=== PATIENT | male | born 1945 | race Caucasian/White ===

== ENCOUNTER 2017-09-19 17:14 | Inpatient (IN) | payer MEDICARE ==
[2017-09-19 17:28] LABS: ABSOLUTE BASOPHILS # (AUTO) 0.1 10^3/uL (0.0-0.2); ABSOLUTE EOSINOPHILS # (AUTO) 0.1 10^3/uL (0.0-0.6); ABSOLUTE LYMPHOCYTES (AUTO) 2.2 10^3/uL (0.5-4.7); ABSOLUTE MONOCYTES (AUTO) 0.9 10^3/uL (0.1-1.4); ABSOLUTE NEUT (AUTO) 8.4 10^3/uL (1.7-8.2); BASOPHILS % (AUTO) 0.8 % (0-2); EOSINOPHILS % (AUTO) 1.2 % (0-6); HEMATOCRIT 43.3 % (37.9-51.0); HEMOGLOBIN 14.4 g/dL (13.5-17.0); LYMPHOCYTES % (AUTO) 18.8 % (13-45); MEAN CORPUSCULAR HEMOGLOBIN 28.2 pg (27.0-33.4); MEAN CORPUSCULAR HGB CONC 33.3 g/dL (32.0-36.0); MEAN CORPUSCULAR VOLUME 85 fl (80-97); MONOCYTES % (AUTO) 7.4 % (3-13); PLATELET COUNT 236 10^3/uL (150-450); RED BLOOD COUNT 5.12 10^6/uL (4.35-5.55); RED CELL DISTRIBUTION WIDTH 14.9 % (11.5-14.0); SEGMENTED NEUTROPHILS % (AUTO) 71.8 % (42-78); TOTAL CELLS COUNTED % (AUTO) 100 %; WHITE BLOOD COUNT 11.8 10^3/uL (4.0-10.5)
--- NOTE | 2017-09-19 17:44 | RADIOLOGY REPORT (SQ) ---
EXAM DESCRIPTION: CHEST SINGLE VIEW COMPLETED DATE/TIME: 09/19/2017 5:31 pm REASON FOR STUDY: [id number] COMPARISON: None. NUMBER OF VIEWS: One view. TECHNIQUE: Single frontal radiographic view of the chest acquired. LIMITATIONS: None. FINDINGS: LUNGS AND PLEURA: No opacities, masses or pneumothorax. No pleural effusion. MEDIASTINUM AND HILAR STRUCTURES: No masses. Contour normal. HEART AND VASCULAR STRUCTURES: Heart enlarged without failure. Normal vasculature. BONES: No acute findings. HARDWARE: None in the chest. OTHER: No other significant finding. IMPRESSION: HEART ENLARGED WITHOUT FAILURE. NO OTHER SIGNIFICANT RADIOGRAPHIC FINDING IN THE CHEST. TECHNICAL DOCUMENTATION: JOB ID: [id number] [employer]- All Rights Reserved Reading location - IP/workstation name: [email or web address]
[2017-09-19 17:53] LABS: CREATINE KINASE MB 2.03 ng/mL (<4.55); TROPONIN I 0.016 ng/mL
[2017-09-19] MEDS ORDERED: ASPIRIN 81 MG TABLET, CHEWABLE PO ONE (17:53)
[2017-09-19] MEDS ORDERED: DILTIAZEM HCL/D5W 125 MG/125 ML RTUINJ IV PRN (17:54)
[2017-09-19] MEDS ORDERED: DILTIAZEM HCL INJ 25 MG/5 ML VIAL IV ONE (17:54)
[2017-09-19 17:56] LABS: ALANINE AMINOTRANSFERASE 47 U/L (21-72); ALBUMIN 4.3 g/dL (3.5-5.0); ALKALINE PHOSPHATASE 78 U/L (38-126); ANION GAP 11 (5-19); ASPARTATE AMINO TRANSFERASE 25 U/L (17-59); BILIRUBIN,DIRECT 0.3 mg/dL (0.0-0.4); BILIRUBIN,TOTAL 0.8 mg/dL (0.2-1.3); BLOOD UREA NITROGEN 23 mg/dL (7-20); CALCIUM 9.6 mg/dL (8.4-10.2); CARBON DIOXIDE 24 mmol/L (22-30); CHLORIDE 105 mmol/L (98-107); CREATINE KINASE 70 U/L (55-170); GLUCOSE 97 mg/dL (75-110); POTASSIUM 4.4 mmol/L (3.6-5.0); SODIUM 140.1 mmol/L (137-145); TOTAL PROTEIN 7.5 g/dL (6.3-8.2)
[2017-09-19 18:18] LABS: LIPASE 136.2 U/L (23-300)
[2017-09-19 18:22] LABS: APPEARANCE,URINE CLEAR; BILIRUBIN,URINE NEGATIVE (NEGATIVE); COLOR,URINE YELLOW; GLUCOSE, URINE NEGATIVE (NEGATIVE); KETONES,URINE NEGATIVE (NEGATIVE); LEUKOCYTE ESTERASE,URINE NEGATIVE (NEGATIVE); NITRITE,URINE NEGATIVE (NEGATIVE); PROTEIN,URINE NEGATIVE (NEGATIVE); URINE SPECIFIC GRAVITY 1.013; UROBILINOGEN,URINE NEGATIVE mg/dL (<2.0)
[2017-09-19 18:34] LABS: URINE AMPHETAMINES SCREEN NEGATIVE; URINE BARBITURATES SCREEN NEGATIVE; URINE BENZODIAZEPINES SCREEN NEGATIVE; URINE COCAINE SCREEN NEGATIVE; URINE MARIJUANA (THC) SCREEN NEGATIVE; URINE METHADONE SCREEN NEGATIVE; URINE PHENCYCLIDINE SCREEN NEGATIVE
[2017-09-19 18:48] LABS: FREE T4 (FREE THYROXINE) 1.85 ng/dL (0.78-2.19)
--- NOTE | 2017-09-19 18:58 | EKG REPORT ---
SEVERITY:- ABNORMAL ECG - ATRIAL FIBRILLATION MULTIPLE PREMATURE COMPLEXES, VENT . RIGHT AXIS DEVIATION BORDERLINE T ABNORMALITIES, INFERIOR LEADS BORDERLINE PROLONGED QT INTERVAL : Confirmed by: Santiago Hartman MD 19-Sep-2017 18:58:31
[2017-09-19 19:02] LABS: THYROID STIMULATING HORMONE 5.87 uIU/mL (0.47-4.68)
[2017-09-19] MEDS ORDERED: MAG HYDROX/AL HYDROX/SIMETH SUSP 30 ML UDCUP PO PRN (20:03)
[2017-09-19] MEDS ORDERED: ACETAMINOPHEN 325 MG TABLET PO PRN (20:03)
[2017-09-19] MEDS ORDERED: ENALAPRILAT DIHYDRATE INJ/PF 1.25 MG/1 ML SDV IV PRN (20:03)
--- NOTE | 2017-09-19 20:08 | ER Document Report ---
ED General - General Chief Complaint: Breathing Difficulty Stated Complaint: COUGH Time Seen by Provider: 09/19/17 17:52 TRAVEL OUTSIDE OF THE [place] IN LAST 30 DAYS: No - HPI Patient complains to provider of: Shortness of breath Notes: Patient coming in for shortness of breath ongoing for approximately 1 week. Was seen by his local PCP with an irregular heartbeat referred to the ER for further evaluation. Patient has a history of hypertension hyperlipidemia. Patient otherwise states also having palpitations over the last week. Patient also states weight gain abdominal bloating and swelling the legs. Denies fevers chills nausea vomiting diarrhea. Denies any chest pain at this time denies any abdominal pain at this time. Patient looks to be in A. fib RVR on the monitor. - Related Data Allergies/Adverse Reactions: No Known Allergies Allergy (Unverified 09/19/17 19:22) Past Medical History - Social History Smoking Status: Current Some Day Smoker Frequency of alcohol use: Rare Drug Abuse: None Family History: Reviewed & Not Pertinent Patient has suicidal ideation: No Patient has homicidal ideation: No - Past Medical History Cardiac Medical History: Reports: Hx Atrial Fibrillation, Hx Hypercholesterolemia Renal/ Medical History: Denies: Hx Peritoneal Dialysis Past Surgical History: Reports: Hx Cholecystectomy Review of Systems - Review of Systems Constitutional: No symptoms reported EENT: No symptoms reported Cardiovascular: Palpitations, Dyspnea Respiratory: No symptoms reported Gastrointestinal: No symptoms reported Genitourinary: No symptoms reported Male Genitourinary: No symptoms reported Musculoskeletal: No symptoms reported Skin: No symptoms reported Hematologic/Lymphatic: No symptoms reported Neurological/Psychological: No symptoms reported -: Yes All other systems reviewed and negative Physical Exam - Vital signs Vitals: Pulse Ox 98 09/19/17 17:17 Interpretation: Normal - General General appearance: Appears well, Alert - HEENT Head: Normocephalic, Atraumatic Eyes: Normal Pupils: PERRL - Respiratory Respiratory status: No respiratory distress Chest status: Nontender Breath sounds: Normal Chest palpation: Normal - Cardiovascular Rhythm: Irregularly irregular, Tachycardia Heart sounds: Normal auscultation Murmur: No - Abdominal Inspection: Normal Distension: Tympanitic Bowel sounds: Normal Tenderness: Nontender Organomegaly: No organomegaly - Back Back: Normal, Nontender - Extremities General upper extremity: Normal inspection, Nontender, Normal color, Normal ROM , Normal temperature General lower extremity: Normal inspection, Nontender, Edema - 1+-2+ bilateral, Normal color, Normal ROM, Normal temperature, Normal weight bearing. No: Alli' s sign - Neurological Neuro grossly intact: Yes Cognition: Normal Orientation: AAOx4 Selena Coma Scale Eye Opening: Spontaneous [place] Coma Scale Verbal: Oriented [place] Coma Scale Motor: Obeys Commands [place] Coma Scale Total: 15 Speech: Normal Motor strength normal: LUE, RUE, LLE, RLE Sensory: Normal - Psychological Associated symptoms: Normal affect, Normal mood - Skin Skin Temperature: Warm Skin Moisture: Dry Skin Color: Normal Course - Re-evaluation Re-evalutation: 09/19/17 22:20 Patient placed on Cardizem drip. Laboratory studies allergy for his A. fib. Elevated BNP with cardiomegaly more likely underlying heart failure. Patient responded well to Cardizem states that his dyspnea improved once his heart rate was under control. Discussed with hospitalist service will start patient on Lovenox for anticoagulation will admit the patient for further evaluation. - Vital Signs Vital signs: Temp Pulse Resp BP Pulse Ox 15 110/74 94 09/19/17 22:01 09/19/17 22:01 09/19/17 22:01 - Laboratory Result Diagrams: 09/19/17 16:45 09/19/17 16:45 Laboratory results interpreted by me: 09/19/17 09/19/17 09/19/17 16:45 16:45 16:45 WBC 11.8 H RDW 14.9 H Absolute Neutrophils 8.4 H BUN 23 H NT-Pro-B Natriuret Pep 1430 H TSH 09/19/17 16:45 WBC RDW Absolute Neutrophils BUN NT-Pro-B Natriuret Pep TSH 5.87 H Critical Care Note - Critical Care Note Total time excluding time spent on procedures (mins): 35 Comments: Multiple evaluation for patient with A. fib RVR Discharge - Discharge Clinical Impression: Atrial fibrillation with RVR CHF (congestive heart failure) Qualifiers: Heart failure type: unspecified Heart failure chronicity: unspecified Qualified Code(s): I50.9 - Heart failure, unspecified Hypothyroidism Qualifiers: Hypothyroidism type: unspecified Qualified Code(s): E03.9 - Hypothyroidism, unspecified Condition: Good Disposition: ADMITTED INPATIENT Admitting Provider: Hospitalist [facility] Admitted: [facility]
[2017-09-19 21:13] LABS: CREATINE KINASE MB 1.54 ng/mL (<4.55); TROPONIN I 0.014 ng/mL
[2017-09-20] MEDS: ENOXAPARIN SODIUM INJ 100 MG/1 ML DISP.SYRIN SUBCUT SCH ×3 (00:11→21:56)
[2017-09-20 02:46] LABS: HEMATOCRIT 38.1 % (37.9-51.0); HEMOGLOBIN 12.6 g/dL (13.5-17.0); MEAN CORPUSCULAR HEMOGLOBIN 28.2 pg (27.0-33.4); MEAN CORPUSCULAR HGB CONC 33.1 g/dL (32.0-36.0); MEAN CORPUSCULAR VOLUME 85 fl (80-97); PLATELET COUNT 194 10^3/uL (150-450); RED BLOOD COUNT 4.48 10^6/uL (4.35-5.55); RED CELL DISTRIBUTION WIDTH 14.6 % (11.5-14.0); WHITE BLOOD COUNT 9.5 10^3/uL (4.0-10.5)
[2017-09-20 03:00] LABS: ANION GAP 6 (5-19); BLOOD UREA NITROGEN 22 mg/dL (7-20); CALCIUM 8.9 mg/dL (8.4-10.2); CARBON DIOXIDE 26 mmol/L (22-30); CHLORIDE 108 mmol/L (98-107); GLUCOSE 88 mg/dL (75-110); POTASSIUM 4.5 mmol/L (3.6-5.0); SODIUM 139.9 mmol/L (137-145)
[2017-09-20 03:11] LABS: CREATINE KINASE MB 1.34 ng/mL (<4.55); TROPONIN I 0.018 ng/mL
--- NOTE | 2017-09-20 06:29 | PDOC H&P ---
History of Present Illness Admission Date/PCP: 09/19/17 20:12 SHERRILL RODRIGUEZ MD Patient complains of: Shortness of breath History of Present Illness: RUBY BOJORQUEZ is a 72 year old male with a past medical history of BPH, dyslipidemia, hypertension, obstructive sleep apnea and hypothyroidism. Patient presents with 1 week of exertional shortness of breath prompting evaluation by primary care where he is found to be in A. fib with RVR in the 130s. He is referred to the emergency room for evaluation where this is verified started on IV Cardizem and subcu Lovenox 1 mg/kg and referred to the hospitalist for admission. Patient denies chest pain nausea vomiting diaphoresis. He denies [id number] medications, excessive caffeine, alcohol or new medication. He denies previous episode of palpitations. Past Medical History Cardiac Medical History: Reports: Atrial Fibrillation, Hyperlipidema Past Surgical History Past Surgical History: Reports: Cholecystectomy Social History Information Source: Patient Lives with: Family Smoking Status: Current Some Day Smoker Frequency of Alcohol Use: Occasional Hx Recreational Drug Use: No Drugs: None - Advance Directive Resuscitation Status: Full Code Family History Family History: CVA Parental Family History Reviewed: Yes Children Family History Reviewed: Yes Sibling(s) Family History Reviewed.: Yes Medication/Allergy Home Medications: Albuterol Sulfate [Proair HFA Inhalation Aerosol 8.5 gm MDI] 2 puff IH Q6HP PRN 09/19/17 Atorvastatin Calcium [Lipitor 20 mg Tablet] 20 mg PO QHS 09/19/17 Fluticasone Propionate [Flonase Nasal [place] 50 Mcg/[place] 16 gm] 1 spray NASL DAILYP PRN 09/19/17 Levothyroxine Sodium [Synthroid 0.088 mg Tablet] 0.088 mg PO Q6AM 09/19/17 Allergies/Adverse Reactions: No Known Allergies Allergy (Unverified 09/19/17 19:22) Review of Systems Constitutional: ABSENT: chills, fever(s), headache(s), weight gain, weight loss Eyes: ABSENT: visual disturbances Ears: ABSENT: hearing changes Cardiovascular: ABSENT: chest pain, dyspnea on exertion, edema, orthropnea, palpitations Respiratory: ABSENT: cough, hemoptysis Gastrointestinal: ABSENT: abdominal pain, constipation, diarrhea, hematemesis, hematochezia, nausea, vomiting Genitourinary: ABSENT: dysuria, hematuria Musculoskeletal: ABSENT: joint swelling Integumentary: ABSENT: rash, wounds Neurological: ABSENT: abnormal gait, abnormal speech, confusion, dizziness, focal weakness, syncope Psychiatric: ABSENT: anxiety, depression, homidical ideation, suicidal ideation Endocrine: ABSENT: cold intolerance, heat intolerance, polydipsia, polyuria Hematologic/Lymphatic: ABSENT: easy bleeding, easy bruising Physical Exam Vital Signs: Temp Pulse Resp BP Pulse Ox 13 102/77 96 09/20/17 05:33 09/20/17 05:33 09/20/17 05:33 General appearance: PRESENT: no acute distress, cooperative, well-developed, well-nourished Head exam: PRESENT: atraumatic, normocephalic Eye exam: PRESENT: conjunctiva pink, EOMI, PERRLA. ABSENT: scleral icterus Ear exam: PRESENT: normal external ear exam Mouth exam: PRESENT: moist, tongue midline Neck exam: ABSENT: carotid bruit, JVD, lymphadenopathy, thyromegaly Respiratory exam: PRESENT: crackles, tachypnea. ABSENT: rales, rhonchi, wheezes Cardiovascular exam: PRESENT: irregular rhythm. ABSENT: diastolic murmur, rubs , systolic murmur Pulses: PRESENT: normal dorsalis pedis pul Vascular exam: PRESENT: normal capillary refill GI/Abdominal exam: PRESENT: normal bowel sounds, soft. ABSENT: distended, guarding, mass, organolmegaly, rebound, tenderness Rectal exam: PRESENT: deferred Extremities exam: PRESENT: full ROM, +1 edema. ABSENT: calf tenderness, clubbing, pedal edema Neurological exam: PRESENT: alert, awake, oriented to person, oriented to place , oriented to time, oriented to situation, CN II-XII grossly intact. ABSENT: motor sensory deficit Psychiatric exam: PRESENT: appropriate affect, normal mood. ABSENT: homicidal ideation, suicidal ideation Skin exam: PRESENT: dry, intact, warm. ABSENT: cyanosis, rash Results Laboratory Results: 09/20/17 02:35 09/20/17 02:35 09/20/17 09/20/17 02:35 02:35 WBC 9.5 RBC 4.48 Hgb 12.6 L Hct 38.1 MCV 85 MCH 28.2 MCHC 33.1 RDW 14.6 H Plt Count 194 Sodium 139.9 Potassium 4.5 Chloride 108 H Carbon Dioxide 26 Anion Gap 6 BUN 22 H Creatinine 1.00 Est GFR ( Amer) > 60 Est GFR (Non-Af Amer) > 60 Glucose 88 Calcium 8.9 09/19/17 09/19/17 09/20/17 20:36 20:36 02:35 Creatine Kinase 58 46 L CK-MB (CK-2) 1.54 Troponin I 0.014 09/20/17 02:35 Creatine Kinase CK-MB (CK-2) 1.34 Troponin I 0.018 Impressions: Chest X-Ray 09/19/17 17:17 IMPRESSION: HEART ENLARGED WITHOUT FAILURE. NO OTHER SIGNIFICANT RADIOGRAPHIC FINDING IN THE CHEST. Assessment & Plan - Diagnosis (1) Atrial fibrillation with RVR Is this a current diagnosis for this admission?: Yes Plan: Likely secondary to pulmonary hypertension and obstructive sleep apnea. Continue IV Cardizem transition to p.o. and Lovenox pending echocardiogram. Follow-up cardiac enzymes. (2) CHF (congestive heart failure) Qualifiers: Heart failure type: unspecified Heart failure chronicity: unspecified Qualified Code(s): I50.9 - Heart failure, unspecified Is this a current diagnosis for this admission?: Yes Plan: Secondary to high-output failure of A. fib. Follow-up echocardiogram. (3) Hypothyroidism Qualifiers: Hypothyroidism type: unspecified Qualified Code(s): E03.9 - Hypothyroidism , unspecified Is this a current diagnosis for this admission?: Yes Plan: Follow-up TSH. (4) Obstructive sleep apnea Is this a current diagnosis for this admission?: Yes Plan: CPAP ordered, encourage CPAP use - Time Time Spent: 50 to 70 Minutes - Inpatient Certification Medical Necessity: Need Close Monitoring Due to Risk of Patient Decompensation
[2017-09-20 09:39] LABS: CREATINE KINASE MB 1.39 ng/mL (<4.55); TROPONIN I 0.016 ng/mL
[2017-09-20] MEDS ORDERED: DILTIAZEM HCL 60 MG TABLET PO ONE (10:19)
[2017-09-20] MEDS: POTASSIUM CHLORIDE 10 MEQ TABLET.SA PO SCH (10:36)
[2017-09-20] MEDS: DOCUSATE SODIUM 100 MG CAPSULE PO SCH (10:37)
[2017-09-20] MEDS: FUROSEMIDE INJ/PF 20 MG/2 ML SDV IV SCH (10:38)
[2017-09-20 13:21] LABS: APPEARANCE,URINE CLEAR; BILIRUBIN,URINE NEGATIVE (NEGATIVE); COLOR,URINE COLORLESS; GLUCOSE, URINE NEGATIVE (NEGATIVE); KETONES,URINE NEGATIVE (NEGATIVE); LEUKOCYTE ESTERASE,URINE NEGATIVE (NEGATIVE); NITRITE,URINE NEGATIVE (NEGATIVE); PROTEIN,URINE NEGATIVE (NEGATIVE); URINE SPECIFIC GRAVITY 1.004; UROBILINOGEN,URINE NEGATIVE mg/dL (<2.0)
[2017-09-20] MEDS ORDERED: FLUTICASONE NASAL SPRAY 50 MCG/SPRY 120 SPRAY/16 GM NASL PRN (17:42)
--- NOTE | 2017-09-20 18:36 | XCELERA REPORT ---
[address] [address] Transthoracic Echocardiogram Report Name: RUBY BOJORQUEZ Age: 72 yrs Gender: Male : 1945 Patient Status: Inpatient Patient Location: [place] [address]^A Study Date: 09/20/2017 02:57 PM Height: 74 in Weight: 220 lb BSA: 2.3 m2 Procedure: A complete two-dimensional transthoracic echocardiogram was performed (2D, M-mode, spectral and color flow Doppler). The study was technically adequate with some images being suboptimal in quality. Reason For Study: new afib Ordering Physician: CASSIE AGRAWAL Performed By: Shakira Maurice Interpretation Summary The Ejection Fraction estimate is 45-50% Left ventricular systolic function is borderline reduced. Doppler measurements suggest pseudonormalized left ventricular relaxation, which is associated with grade II/IV or mild to moderate diastolic dysfunction There is borderline concentric left ventricular hypertrophy. The left ventricle is grossly normal size. Wall motion cannot be accurately commented on, but no definite regional wall motion abnormalities noted. The right ventricle is borderline dilated. The right ventricular systolic function is normal. The left atrium is moderately dilated. The right atrium is moderately dilated. There is a mild to moderate amount of mitral regurgitation The mitral regurgitant jet is eccentrically directed. There is no aortic valve stenosis No aortic regurgitation is present. There is a trace or physiologic amount of tricuspid regurgitation Tricuspid regurgitation jet envelope not well defined to measure RV systolic pressure accurately. There is no pericardial effusion. MMode/2D Measurements & Calculations RVDd: 3.1 cm LVIDd: 5.6 cm FS: 22.2 % Ao root diam: 3.1 cm IVSd: 0.95 cm LVIDs: 4.4 cm EDV(Teich): 156.2 ml LVPWd: 1.00 cm ESV(Teich): 87.1 ml Ao root area: 7.4 cm2 EF(Teich): 44.2 % LA dimension: 5.0 cm Doppler Measurements & Calculations MV E max dino: MV P1/2t max dino: Ao V2 max: LV V1 max P.9 cm/sec 126.4 cm/sec 103.2 cm/sec 1.6 mmHg MV A max dino: MV P1/2t: 51.9 msec Ao max PG: LV V1 max: 44.6 cm/sec 4.3 mmHg 63.7 cm/sec MV E/A: 2.8 MVA(P1/2t): 4.2 cm2 MV dec slope: 713.2 cm/sec2 MV dec time: 0.17 sec PA V2 max: TR max dino: 47.4 cm/sec 235.3 cm/sec PA max PG: TR max P.1 mmHg 0.90 mmHg Left Ventricle The left ventricle is grossly normal size. There is borderline concentric left ventricular hypertrophy. Left ventricular systolic function is borderline reduced. The Ejection Fraction estimate is 45-50%. Doppler measurements suggest pseudonormalized left ventricular relaxation, which is associated with grade II/IV or mild to moderate diastolic dysfunction. Wall motion cannot be accurately commented on, but no definite regional wall motion abnormalities noted. Right Ventricle The right ventricle is borderline dilated. There is normal right ventricular wall thickness. The right ventricular systolic function is normal. Atria The right atrium is moderately dilated. The left atrium is moderately dilated. Interarterial septum not well visualized and not well dopplered. Cannot comment on ASD/PFO presence. Mitral Valve There is mild mitral leaflet calcification. There is moderate mitral annular calcification. There is no mitral valve stenosis. There is a mild to moderate amount of mitral regurgitation. The mitral regurgitant jet is eccentrically directed. Aortic Valve The aortic valve is grossly normal. The aortic valve is trileaflet. There is no aortic valve stenosis. No aortic regurgitation is present. Tricuspid Valve The tricuspid valve is not well visualized, but is grossly normal. There is no tricuspid stenosis. There is a trace or physiologic amount of tricuspid regurgitation. Tricuspid regurgitation jet envelope not well defined to measure RV systolic pressure accurately. Pulmonic Valve The pulmonic valve is not well visualized. Great Vessels The aortic root is not well visualized but is probably normal size. The inferior vena cava appeared normal and decreased > 50% with respiration (RAP 5-10 mmHg). Effusions There is no pericardial effusion. : CASSIE AGRAWAL > Alejandro Buenrostro
[2017-09-20] MEDS ORDERED: INFLUENZA ADLT QUAD (36MOS+) 2017-18 VAC 0.5 ML SYR IM PRN (19:58)
--- NOTE | 2017-09-20 21:08 | PDOC PROGRESS REPORT ---
Subjective Progress Note for:: 09/20/17 Subjective:: Admitted with new onset A fib with RVR Reason For Visit: NEW AFIB HEART FAILURE Physical Exam Vital Signs: Temp Pulse Resp BP Pulse Ox 97.5 F 63 17 113/62 96 09/20/17 18:13 09/20/17 18:13 09/20/17 18:13 09/20/17 18:13 09/20/17 18:13 Intake & Output 09/19/17 09/20/17 09/21/17 06:59 06:59 06:59 Weight 99.9 kg General appearance: PRESENT: no acute distress, cooperative Head exam: PRESENT: atraumatic Ear exam: PRESENT: normal external ear exam Neck exam: ABSENT: carotid bruit, JVD, lymphadenopathy, thyromegaly Respiratory exam: PRESENT: clear to auscultation josesito. ABSENT: rales, rhonchi, wheezes Cardiovascular exam: PRESENT: irregular rhythm, +S1, +S2, tachycardia. ABSENT: diastolic murmur, rubs, systolic murmur Pulses: PRESENT: normal dorsalis pedis pul GI/Abdominal exam: PRESENT: normal bowel sounds, soft. ABSENT: distended, guarding, mass, organolmegaly, rebound, tenderness Rectal exam: PRESENT: deferred Extremities exam: PRESENT: full ROM. ABSENT: calf tenderness, clubbing, pedal edema Musculoskeletal exam: PRESENT: ambulatory Neurological exam: PRESENT: alert, awake, oriented to time Psychiatric exam: PRESENT: appropriate affect, normal mood. ABSENT: homicidal ideation, suicidal ideation Results Laboratory Results: 09/20/17 02:35 09/20/17 02:35 09/20/17 09/20/17 09/20/17 02:35 02:35 12:55 WBC 9.5 RBC 4.48 Hgb 12.6 L Hct 38.1 MCV 85 MCH 28.2 MCHC 33.1 RDW 14.6 H Plt Count 194 Sodium 139.9 Potassium 4.5 Chloride 108 H Carbon Dioxide 26 Anion Gap 6 BUN 22 H Creatinine 1.00 Est GFR ( Amer) > 60 Est GFR (Non-Af Amer) > 60 Glucose 88 Calcium 8.9 Urine Color COLORLESS Urine Appearance CLEAR Urine pH 7.0 Ur Specific [place] 1.004 Urine Protein NEGATIVE Urine Glucose (UA) NEGATIVE Urine Ketones NEGATIVE Urine Blood NEGATIVE Urine Nitrite NEGATIVE Ur Leukocyte Esterase NEGATIVE Stool Occult Blood 09/20/17 16:38 WBC RBC Hgb Hct MCV MCH MCHC RDW Plt Count Sodium Potassium Chloride Carbon Dioxide Anion Gap BUN Creatinine Est GFR ( Amer) Est GFR (Non-Af Amer) Glucose Calcium Urine Color Urine Appearance Urine pH Ur Specific [place] Urine Protein Urine Glucose (UA) Urine Ketones Urine Blood Urine Nitrite Ur Leukocyte Esterase Stool Occult Blood NEGATIVE 09/19/17 09/19/17 09/20/17 20:36 20:36 02:35 Creatine Kinase 58 46 L CK-MB (CK-2) 1.54 Troponin I 0.014 09/20/17 09/20/17 09/20/17 02:35 08:46 08:46 Creatine Kinase 47 L CK-MB (CK-2) 1.34 1.39 Troponin I 0.018 0.016 Impressions: Chest X-Ray 09/19/17 17:17 IMPRESSION: HEART ENLARGED WITHOUT FAILURE. NO OTHER SIGNIFICANT RADIOGRAPHIC FINDING IN THE CHEST. Assessment & Plan - Diagnosis (1) Atrial fibrillation with RVR Is this a current diagnosis for this admission?: Yes Plan: Patient was started on Cardizem drip which has since been discontinued and he has been placed on oral Cardizem. He is also on Lovenox. Echo noted. Will consult Cardiology (2) CHF (congestive heart failure) Qualifiers: Heart failure type: unspecified Heart failure chronicity: unspecified Qualified Code(s): I50.9 - Heart failure, unspecified Is this a current diagnosis for this admission?: Yes Plan: Echocardiogram shows ejection fraction of 45-50% with associated grade 2 mild to moderate diastolic dysfunction. We will consult cardiology for their input (3) Hypothyroidism Qualifiers: Hypothyroidism type: unspecified Qualified Code(s): E03.9 - Hypothyroidism , unspecified Is this a current diagnosis for this admission?: Yes Plan: Patient is on replacement Synthroid. His TSH is a little higher and his dose may need to be increased (4) Obstructive sleep apnea Is this a current diagnosis for this admission?: Yes Plan: CPAP as per home use - Time Time Spent with patient: 15-24 minutes Medications reviewed and adjusted accordingly: Yes Anticipated discharge: Home Within: within 24 hours - Inpatient Certification Based on my medical assessment, after consideration of the patient's comorbidities, presenting symptoms, or acuity I expect that the services needed warrant INPATIENT care.: Yes Medical Necessity: Need For Continuous Telemetry Monitoring
[2017-09-20] MEDS: DILTIAZEM HCL 120 MG CAP.SR.24H PO SCH (21:56)
[2017-09-20] MEDS ORDERED: ATORVASTATIN CALCIUM 20 MG TABLET PO SCH (22:00)
[2017-09-21] MEDS: DILTIAZEM HCL 120 MG CAP.SR.24H PO SCH (05:33)
[2017-09-21] MEDS ORDERED: LEVOTHYROXINE SODIUM 0.088 MG TABLET PO SCH (06:00)
[2017-09-21] MEDS: DOCUSATE SODIUM 100 MG CAPSULE PO SCH (09:39)
[2017-09-21] MEDS: POTASSIUM CHLORIDE 10 MEQ TABLET.SA PO SCH (09:39)
[2017-09-21] MEDS: FUROSEMIDE INJ/PF 20 MG/2 ML SDV IV SCH (09:39)
[2017-09-21] MEDS: ENOXAPARIN SODIUM INJ 100 MG/1 ML DISP.SYRIN SUBCUT SCH (09:40)
--- NOTE | 2017-09-21 11:29 | PDOC CONSULTATION ---
History of Present Illness Admission Date/PCP: 09/19/17 20:12 SHERRILL RODRIGUEZ MD History of Present Illness: Here is a very pleasant 72-year-old male with past medical history of hypothyroidism and hyperlipidemia comes in with complaints of generalized malaise and fatigue for the last few months along with exercise intolerance and exertional shortness of breath. Patient claims that he had a hernia surgery last year and since then he has felt very tired and couple of months ago had the flu. Subsequently he continued to feel tired and was seen by primary care provider and initially started on steroids and nebulizers which did not improve his condition. He seemed to have a nonproductive cough that he could not get rid off along with exertional shortness of breath and then subsequently was found to have a murmur at PCP office. He was seen at [facility] ER and found to be in atrial fibrillation. He was initially on a Cardizem drip for rate control for atrial fibrillation with rapid ventricular rate and then subsequently was switched to oral Cardizem. Cardiology service was consulted to help comanage his atrial fibrillation. At this time patient claims he feels better with no complaints of chest pain but he still feels tired and short of breath on exertion. He denies history of cigarette smoking but smokes a cigar occasionally. He drinks 3 glasses of wine a week. He has family history significant for his father having had strokes and his younger brother recently had a stroke. Past Medical History Cardiac Medical History: Reports: Atrial Fibrillation, Hyperlipidema, Other - Hypothyroidism Past Surgical History Past Surgical History: Reports: Cholecystectomy, Herniorrhaphy Social History Lives with: Family Smoking Status: Never Smoker Frequency of Alcohol Use: Social Hx Recreational Drug Use: No Drugs: None Hx Prescription Drug Abuse: No - Advance Directive Resuscitation Status: Full Code Family History Family History: CVA Parental Family History Reviewed: Yes Children Family History Reviewed: Yes Sibling(s) Family History Reviewed.: Yes Medication/Allergy Home Medications: Albuterol Sulfate [Proair HFA Inhalation Aerosol 8.5 gm MDI] 2 puff IH Q6HP PRN 09/19/17 Atorvastatin Calcium [Lipitor 20 mg Tablet] 20 mg PO QHS 09/19/17 Fluticasone Propionate [Flonase Nasal Cache 50 Mcg/Cache 16 gm] 1 spray NASL DAILYP PRN 09/19/17 Levothyroxine Sodium [Synthroid 0.088 mg Tablet] 0.088 mg PO Q6AM 09/19/17 Allergies/Adverse Reactions: No Known Allergies Allergy (Unverified 09/19/17 19:22) Review of Systems Constitutional: PRESENT: fatigue Cardiovascular: PRESENT: dyspnea on exertion, edema Respiratory: PRESENT: cough Physical Exam Vital Signs: Temp Pulse Resp BP Pulse Ox 97.6 F 102 H 18 101/70 97 09/21/17 02:56 09/21/17 07:00 09/21/17 02:56 09/21/17 02:56 09/21/17 02:56 Intake & Output 09/20/17 09/21/17 09/22/17 06:59 06:59 06:59 Intake Total 510 Output Total 890 Balance -380 Weight 99.2 kg Cardiovascular exam: PRESENT: irregular rhythm, systolic murmur Results Laboratory Results: 09/20/17 02:35 09/20/17 02:35 09/20/17 09/20/17 12:55 16:38 Urine Color COLORLESS Urine Appearance CLEAR Urine pH 7.0 Ur Specific [place] 1.004 Urine Protein NEGATIVE Urine Glucose (UA) NEGATIVE Urine Ketones NEGATIVE Urine Blood NEGATIVE Urine Nitrite NEGATIVE Ur Leukocyte Esterase NEGATIVE Stool Occult Blood NEGATIVE 09/19/17 09/19/17 09/20/17 20:36 20:36 02:35 Creatine Kinase 58 46 L CK-MB (CK-2) 1.54 Troponin I 0.014 09/20/17 09/20/17 09/20/17 02:35 08:46 08:46 Creatine Kinase 47 L CK-MB (CK-2) 1.34 1.39 Troponin I 0.018 0.016 Impressions: Chest X-Ray 09/19/17 17:17 IMPRESSION: HEART ENLARGED WITHOUT FAILURE. NO OTHER SIGNIFICANT RADIOGRAPHIC FINDING IN THE CHEST. Assessment & Plan - Diagnosis (1) Atrial fibrillation with RVR Is this a current diagnosis for this admission?: Yes (2) CHF (congestive heart failure) Qualifiers: Heart failure type: combined systolic and diastolic Heart failure chronicity: unspecified Qualified Code(s): I50.40 - Unspecified combined systolic (congestive) and diastolic (congestive) heart failure Is this a current diagnosis for this admission?: Yes - Notes Notes: Recommendation/plan of care Patient appears euvolemic on exam at this point of time with ventricular rate controlled on oral Cardizem. His echocardiogram reveals mild LV systolic dysfunction with mild to moderate appearing, eccentric mitral regurgitation with moderate mitral annular calcification. We discussed rate control versus rhythm control strategy with the patient and patient has elected rhythm control strategy which is a better option in this patient with symptomatic atrial fibrillation with mild LV systolic dysfunction. Patient agreeable for transfer to [facility] for ALIN guided DC cardioversion along with institution of antiarrhythmic therapy. Will recommend continuation of anticoagulation with Lovenox therapy for now. We also discussed need for outpatient sleep study as his does admit the patient has a history of snoring and probable apnea episodes that she has noted. We discussed risks/benefits of anticoagulation with patient and he denies any previous history of bleeding and has verbalized understanding of the risk of bleeding with anticoagulation. Patient will also need ischemia evaluation at some point which will be arranged as an outpatient. We will see him back in cardiology clinic in a few weeks after discharge from [place]. Plan of care was discussed with hospitalist as well as Dr. Cornelio Bruce, [place]. - Time Time Spent: 30 to 50 Minutes Anticipated discharge: [facility]: when bed available
--- NOTE | 2017-09-21 12:42 | PDOC DISCHARGE SUMMARY ---
General - Admit/Disc Date/PCP Admission Date/Primary Care Provider: 09/19/17 20:12 SHERRILL RODRIGUEZ MD Discharge Date: 09/21/17 - Discharge Diagnosis (1) Atrial fibrillation with RVR Is this a current diagnosis for this admission?: Yes (2) CHF (congestive heart failure) Is this a current diagnosis for this admission?: Yes (3) Hypothyroidism Is this a current diagnosis for this admission?: Yes (4) Obstructive sleep apnea Is this a current diagnosis for this admission?: Yes - Additional Information Resuscitation Status: Full Code Discharge Diet: Cardiac Discharge Activity: Activity As Tolerated, Balance Activity w/Rest, Weigh Daily Home Medications: Albuterol Sulfate [Proair HFA Inhalation Aerosol 8.5 gm MDI] 2 puff IH Q6HP PRN 09/19/17 Atorvastatin Calcium [Lipitor 20 mg Tablet] 20 mg PO QHS 09/19/17 Fluticasone Propionate [Flonase Nasal [place] 50 Mcg/Ronceverte 16 gm] 1 spray NASL DAILYP PRN 09/19/17 Levothyroxine Sodium [Synthroid 0.088 mg Tablet] 0.088 mg PO Q6AM 09/19/17 Diltiazem HCl [Cardizem Cd 120 mg Capsule] 120 mg PO Q12A cap.sr.24h 09/21/17 Enoxaparin Sodium [Lovenox Inj 100 mg/1 ml Disp.syrin] 100 mg SUBCUT Q12 disp.syrin 09/21/17 History of Present Illness Patient complains of: Difficulty breathing and shortness of breath History of Present Illness: RUBY BOJORQUEZ is a 72 year old male Who was admitted with difficulty breathing and shortness of breath and found to have new onset atrial fibrillation Hospital Course Hospital Course: This 72-year-old gentleman was admitted with shortness of breath and found to have in being atrial fibrillation with a rapid ventricular response which apparently was of new onset. He was started on Cardizem drip and then subsequently switched to oral Cardizem. He was also started on Lovenox full dose. Echocardiogram done reveals an ejection fraction of 45-50% with mild to moderate diastolic dysfunction as well as mild to moderate mitral regurgitation. Patient remains in atrial fibrillation although with his rate controlled. He was seen by the restorer [employer] today and plan is to transfer him to a tertiary care for ALIN and possible cardioversion. Physical Exam Vital Signs: Temp Pulse Resp BP Pulse Ox 97.6 F 85 20 129/72 H 98 09/21/17 08:42 09/21/17 08:42 09/21/17 08:42 09/21/17 08:42 09/21/17 09:04 Intake & Output 09/20/17 09/21/17 09/22/17 06:59 06:59 06:59 Intake Total 510 Output Total 890 Balance -380 Weight 99.2 kg General appearance: PRESENT: no acute distress, cooperative Head exam: PRESENT: atraumatic Eye exam: PRESENT: conjunctiva pink, EOMI, PERRLA. ABSENT: scleral icterus Ear exam: PRESENT: normal external ear exam GI/Abdominal exam: PRESENT: normal bowel sounds, soft. ABSENT: distended, guarding, mass, organolmegaly, rebound, tenderness Rectal exam: PRESENT: deferred Extremities exam: PRESENT: full ROM. ABSENT: calf tenderness, clubbing, pedal edema Musculoskeletal exam: PRESENT: ambulatory Neurological exam: PRESENT: alert, awake, oriented to person, oriented to place , oriented to time, oriented to situation, CN II-XII grossly intact. ABSENT: motor sensory deficit Skin exam: PRESENT: abrasion Results Laboratory Results: 09/20/17 02:35 09/20/17 02:35 09/20/17 09/20/17 12:55 16:38 Urine Color COLORLESS Urine Appearance CLEAR Urine pH 7.0 Ur Specific [place] 1.004 Urine Protein NEGATIVE Urine Glucose (UA) NEGATIVE Urine Ketones NEGATIVE Urine Blood NEGATIVE Urine Nitrite NEGATIVE Ur Leukocyte Esterase NEGATIVE Stool Occult Blood NEGATIVE 09/19/17 09/19/17 09/20/17 20:36 20:36 02:35 Creatine Kinase 58 46 L CK-MB (CK-2) 1.54 Troponin I 0.014 09/20/17 09/20/17 09/20/17 02:35 08:46 08:46 Creatine Kinase 47 L CK-MB (CK-2) 1.34 1.39 Troponin I 0.018 0.016 Impressions: Chest X-Ray 09/19/17 17:17 IMPRESSION: HEART ENLARGED WITHOUT FAILURE. NO OTHER SIGNIFICANT RADIOGRAPHIC FINDING IN THE CHEST. Qualifiers - * PATEINT BEING DISCHARGED WITH ANY OF THE FOLLOWING DIAGNOSIS?: No Plan Time Spent: Less than 30 Minutes - Patient is been transferred to [place] for ALIN and possible cardioversion. Appreciate 's input
[2017-09-21 13:29] VITALS: BP 126/78
== END 2017-09-21 14:24 | disposition short-term general hospital (02) | DRG 309 ==
LOC: ER 17:14 → EH 20:12 → 4S 09-20 17:43
PROVIDERS: ADMIT Internal Medicine; ATTEND Internal Medicine
DX: I48.91 Unspecified atrial fibrillation (principal); I50.40 Unspecified combined systolic (congestive) and diastolic (congestive) heart failure; I11.0 Hypertensive heart disease with heart failure; I34.0 Nonrheumatic mitral (valve) insufficiency; E03.9 Hypothyroidism, unspecified; E78.00 Pure hypercholesterolemia, unspecified; F17.200 Nicotine dependence, unspecified, uncomplicated; I10 Essential (primary) hypertension; G47.33 Obstructive sleep apnea (adult) (pediatric); E78.5 Hyperlipidemia, unspecified; Z82.3 Family history of stroke; Z90.49 Acquired absence of other specified parts of digestive tract
CPT/HCPCS: 36415; 71045; 80048; 80053; 80307; 81001; 82272; 82550; 82553; 83690; 83735; 83880; 84439; 84443; 84484; 85025; 85027; 93005; 93010; 93306; 94660; J1650; J1940; J3490